=== PATIENT | male | born 1960 | race Caucasian/White ===

== ENCOUNTER → 2025-03-14 | Outpatient (CLI) | payer MEDICARE, SELFPAY ==
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
--- NOTE | 2025-03-14 15:16 | MRI_ITS ---
PROCEDURE: SPINE LUMBAR (ROUTINE) 03/14/2025 REASON FOR EXAM: PAIN, SPONDY, RADICULOPATHY GROIN TECHNIQUE: Procedure Code: MRISPL Modality: MR Procedure: SPINE LUMBAR (ROUTINE) COMPARISON: February 07, 2025 FINDINGS: Vertebrae: Mild anterior wedging of T12 and L1 vertebral bodies. T12 shows approximately 25% height loss, while L1 shows approximately 15% height loss. No significant bone marrow edema is present. Alignment: Normal lumbar lordosis. Conus Medullaris: Conus medullaris terminates at the L1/2 level. No abnormal cord signal. T12-L1: Mild loss of disc height. Fatty marrow changes anteriorly. Imaging only in the sagittal plane. L1-2: Mild, diffuse disc bulge. Iaxl-[id number]-imexyggb thickening of ligamentum flavum. Mild facet hypertrophy. No exit foraminal narrowing. No central stenosis. L2-3: Mild, diffuse disc bulge slightly asymmetric left paracentral and left sub foraminal. Moderate thickening of ligamentum flavum. Dgsl-ka-[id number] bilateral facet hypertrophy. No central stenosis. Bilateral exit foraminal narrowing is seen. Correlate with bilateral L2 radiculopathy. L3-4: Diffuse disc bulge is seen with focal disc protrusion left paracentral, sub foraminal region. The disc has a base of 11 mm and protrudes 7 mm AP. Moderate thickening of ligamentum flavum and moderate facet hypertrophy is shown. There is effacement of the majority of the surrounding CSF. [id number]-[id number]-right exit foraminal narrowing. Correlate with left L3 radiculopathy. There is possibly contact of the traversing right L4 nerve root from broad based disc bulging, and contact of the traversing left L4 nerve root from the disc protrusion.. L4-5: Grade 1 anterolisthesis L4 on L5. Diffuse disc bulge is seen along with diffuse disc uncovering. Severe thickening of ligamentum flavum and severe bilateral facet hypertrophy. Effacement of the CSF with central stenosis. Bilateral exit foraminal narrowing. Correlate with bilateral L4 and L5 radiculopathy. L5-S1: Moderate loss of disc height. Moderate, diffuse disc osteophyte protrusion that is most prominent central to right paracentral. Severe facet hypertrophy. Moderate thickening of ligamentum flavum. Bilateral exit foraminal narrowing. MRI/Spine Lumbar (Routine) IMPRESSION: 1. Anterior wedge compression of T12 and L1 showing 25% and 15% height loss re spectively. This is not acute. 2. Multilevel degenerative disc disease outlined above. Grade 1 anterolisthes is L4 on L5 from degenerative facet arthropathy. 3. Spinal stenosis L3/4 and L4/5. Multiple sites of exit foraminal narrowing to include bilateral L2 nerve roots, left L3 nerve root, bilateral L4 and L5 nerve roots. 4. Focal disc protrusion L3/4. Reading Location: [id number]
--- NOTE | 2025-03-14 16:10 | RAD_ITS ---
PROCEDURE: ORBITS FOR FOREIGN BODY 03/14/2025 REASON FOR EXAM: ORBITS FOR MRI CLEARANCE TECHNIQUE: Procedure Code: [id number]. Modality: DX Procedure: ORBITS FOR FOREIGN BODY COMPARISON: None. FINDINGS: Visualized osseous structures appear unremarkable. No acute displaced fracture. Normal bone mineralization. No abnormal opacification of the imaged paranasal sinuses or mastoid air cells. No radiopaque foreign body is seen in the field of view. RAD/Orbits for Foreign Body IMPRESSION: Unremarkable exam. No radiopaque foreign body. Reading Location: [id number]
== END | disposition home or self-care (01) ==
PROVIDERS: Referring Provider Student in an Organized Health Care Education/Training Program; Visit Provider Student in an Organized Health Care Education/Training Program
DX: Z01.89 Encounter for other specified special examinations (principal); M43.16 Spondylolisthesis, lumbar region; M54.16 Radiculopathy, lumbar region; Z87.81 Personal history of (healed) traumatic fracture
CPT/HCPCS: 70030; 71046; 72148